=== PATIENT | female | born 1950 | race Caucasian/White ===

== ENCOUNTER 2016-08-25 09:00 | Day surgery (SDC) | payer MEDICARE, BC ==
[2016-08-25] MEDS ORDERED: Propofol 200 MG/20 ML SDV ONE (09:21)
[2016-08-25] MEDS ORDERED: Midazolam 1 MG/ML 2 ML SDV ONE (09:21)
[2016-08-25] MEDS ORDERED: fentaNYL 100 MCG/2 ML SDV ONE (09:21)
[2016-08-25] MEDS ORDERED: Dextrose 5%-Lactated Ringers 1,000 ML IV SCH (09:45)
[2016-08-25] MEDS ORDERED: Glycopyrrolate 0.2 MG/ML 2 ML SYRINGE IVPUSH ONE (10:15)
[2016-08-25 12:41] VITALS: BP 138/80
--- NOTE | 2016-09-02 08:09 | OR ---
DATE OF PROCEDURE: 08/25/2016 PREOPERATIVE DIAGNOSIS: History of gastric lymphoma. POSTOPERATIVE DIAGNOSIS: History of gastric lymphoma associated with, 1. Persistent area of ulceration of the gastric fundus. 2. Mild antral gastritis. OPERATIVE PROCEDURE: Esophagogastroduodenoscopy with, 1. Biopsies of area of ulceration of the gastric fundus. 2. Biopsies of antrum for CLOtest. ANESTHESIA: IV sedation. 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 She is status post previous radiation treatment and plan is to proceed with upper GI endoscopy with biopsies as indicated to try to assess the presence of her current disease. The potential risks of the procedure including bleeding and perforation were discussed and the patient wishes to proceed. DETAILS OF PROCEDURE: The patient was taken to the operating room and placed in a left lateral decubitus position. IV sedation was administered, after which the upper GI endoscope was passed orally through the length of the esophagus and into the stomach with retroflexion view of the fundus and thereafter through the pyloric channel and into the proximal duodenum. Findings included normal hypopharynx, larynx, upper esophageal sphincter, and esophageal body. At the EG junction, there is a small hiatal hernia present, otherwise unremarkable. As one passed into the stomach, retroflexion revealed a large heaped up area in the fundus with a central ulceration photo documentation of this was obtained. There was no blood or bleeding seen. In the remainder of the stomach, there was some diffuse mild redness particularly in the area of the antrum, but without erosions or ulcers. Pyloric channel and duodenum junction of the third and fourth portions were unremarkable. At this point, biopsies obtained from the antrum were sent for CLOtest for H. pylori and following this, multiple biopsies in the area of ulceration were obtained. Two approaches were used in terms of this biopsy, one is going through the area of the ulceration and would intentionally core down through a single area to get deeper level biopsies given the lymphoma being submucosal disease. Similarly, in the area of the heaped up tissue which was quite soft, multiple biopsies were obtained, again, in several cases repeat biopsies over the previous biopsy site to get deeper levels were also obtained. Minimal bleeding from the biopsy sites was seen and the procedure was then concluded. The patient will be following up with Dr. Camarillo in [facility] and further management will be based on today's endoscopic biopsy results. Efren Reyes MD /[id number]
== END 2016-08-25 13:15 | disposition home or self-care (01) ==
LOC: JP.SDS 09:00
PROVIDERS: ATTEND Surgery
PROC: 0DB78ZZ Excision of Stomach, Pylorus, Via Natural or Artificial Opening Endoscopic (ICD-10-PCS; principal; 2016-08-25)
DX: Z87.19 Personal history of other diseases of the digestive system (principal); K29.50 Unspecified chronic gastritis without bleeding
CPT/HCPCS: 43239; 87081; 88305; 88342; 88365; J2250; J2704; J7042; J3010

== ENCOUNTER 2022-09-19 15:27 | Emergency (ER) | payer MEDICARE ==
[2022-09-19 16:59] LABS: ESTIMATED GFR 53 mL/min (>60); TROPONIN I HIGH SENSITIVITY 6.5 pg/mL (<=60.3)
[2022-09-19 18:06] VITALS: BP 135/74; PULSE 68
== END 2022-09-19 18:05 | disposition home or self-care (01) ==
LOC: JP.ED 15:27
DX: I10 Essential (primary) hypertension (principal); F43.9 Reaction to severe stress, unspecified; Z88.1 Allergy status to other antibiotic agents; Z91.040 Latex allergy status; Z88.8 Allergy status to other drugs, medicaments and biological substances; Z91.09 Other allergy status, other than to drugs and biological substances
CPT/HCPCS: 36415; 80053; 84484; 85025; 93005; 93010; 99283

== ENCOUNTER 2022-11-17 20:04 | Emergency (ER) | payer MEDICARE ==
[2022-11-17] MEDS ORDERED: Sodium Chloride 0.9% 1,000 ML IV SCH (21:30)
[2022-11-17 21:38] LABS: BASOPHILS ABSOLUTE AUTO 0.04 K/uL (0.00-0.10); BASOPHILS PERCENT AUTO 0.6 % (0.1-1.3); EOSINOPHILS ABSOLUTE AUTO 0.36 K/uL (0.00-0.40); EOSINOPHILS PERCENT AUTO 5.6 % (0.0-5.4); HEMATOCRIT 36.4 % (34.3-46.0); HEMOGLOBIN 12.1 g/dL (11.2-15.5); IMMATURE GRAN PERCENT AUTO 0.2 % (0.0-0.7); LYMPHOCYTES ABSOLUTE AUTO 1.17 K/uL (0.8-3.3); LYMPHOCYTES PERCENT AUTO 18.3 % (11.4-47.7); MEAN CORPUSCULAR HEMOGLOBIN 30.9 pg (31.6-35.5); MEAN CORPUSCULAR HGB CONC 33.2 g/dL (31.6-35.5); MEAN CORPUSCULAR VOLUME 93.1 fL (81.4-99.0); MONOCYTES ABSOLUTE AUTO 0.76 K/uL (0.20-0.90); MONOCYTES PERCENT AUTO 11.9 % (3.3-12.6); NEUTROPHILS ABSOLUTE AUTO 4.07 K/uL (1.0-7.6); NEUTROPHILS PERCENT AUTO 63.4 % (40.0-78.1); PLATELET COUNT,PLT 256 K/uL (130-375); RED BLOOD CELL COUNT 3.91 M/uL (3.77-5.24); WHITE BLOOD CELL COUNT,WBC 6.4 K/uL (3.2-11.0)
[2022-11-17 21:44] LABS: IMMATURE GRAN ABSOLUTE AUTO 0.01 K/uL (0.00-0.23)
[2022-11-17 21:56] LABS: APPEARANCE,URINE CLEAR (CLEAR); BILIRUBIN,URINE NEGATIVE (NEGATIVE); COLOR,URINE YELLOW (YELLOW); GLUCOSE,URINE NEGATIVE (NEGATIVE); KETONES,URINE NEGATIVE (NEGATIVE); LEUKOCYTE ESTERASE,URINE NEGATIVE (NEGATIVE); NITRITE,URINE NEGATIVE (NEGATIVE); OCCULT BLOOD,URINE NEGATIVE (NEGATIVE); PROTEIN,URINE NEGATIVE (NEGATIVE); UROBILINOGEN,URINE 0.2 EU/dL (0.2-1.0)
[2022-11-17 22:00] LABS: A/G RATIO 0.8 (1.2-2.2); ALANINE AMINOTRANSFERASE,ALT 22 U/L (12-78); ALBUMIN 3.2 g/dL (3.4-5.0); ALKALINE PHOSPHATASE 116 U/L (46-116); ASPARTATE AMNIOTRANSFERASE,AST 18 U/L (15-37); BILIRUBIN TOTAL 0.2 mg/dL (0.2-1.0); BLOOD UREA NITROGEN,BUN 23 mg/dL (7-18); CALCIUM 8.8 mg/dL (8.5-10.1); CARBON DIOXIDE,CO2 27 mmol/L (21-32); CHLORIDE,CL 102 mmol/L (100-108); EST CRCL DRUG DOSING (CG) 44.41 mL/min; ESTIMATED GFR 59 mL/min (>60); GLUCOSE RANDOM 124 mg/dL (74-106); MAGNESIUM 2.5 mg/dL (1.8-2.4); POTASSIUM,K 4.4 mmol/L (3.6-5.2); SODIUM,NA 136 mmol/L (140-148)
[2022-11-17 22:01] LABS: ANION GAP 11.4 mmol/L (5.0-14.0)
[2022-11-17 22:03] LABS: AMORPHOUS SEDIMENT,URINE NOT SEEN; BACTERIA,URINE RARE; EPITHELIAL CELLS,URINE FEW; MUCUS,URINE RARE; RBC,URINE 0-5 (0-5); WBC,URINE 0-5 (0-5)
[2022-11-17 23:06] VITALS: BP 135/70; PULSE 58
== END 2022-11-17 23:49 | disposition home or self-care (01) ==
LOC: JP.ED 20:04
DX: E86.0 Dehydration (principal); Z91.040 Latex allergy status; Z88.1 Allergy status to other antibiotic agents; Z88.8 Allergy status to other drugs, medicaments and biological substances; Z91.041 Radiographic dye allergy status; Z87.891 Personal history of nicotine dependence
CPT/HCPCS: 36415; 70450; 80053; 81001; 83735; 85025; 93005; 99285; J7030

== ENCOUNTER 2024-07-17 02:12 | Emergency (ER) | payer MEDICARE ==
[2024-07-17 03:04] LABS: BASOPHILS ABSOLUTE AUTO 0.04 K/uL (0.00-0.10); BASOPHILS PERCENT AUTO 0.5 % (0.1-1.3); EOSINOPHILS ABSOLUTE AUTO 0.15 K/uL (0.00-0.40); EOSINOPHILS PERCENT AUTO 1.9 % (0.0-5.4); HEMATOCRIT 28.9 % (34.3-46.0); HEMOGLOBIN 9.3 g/dL (11.2-15.5); IMMATURE GRAN ABSOLUTE AUTO 0.04 K/uL (0.00-0.23); IMMATURE GRAN PERCENT AUTO 0.5 % (0.0-0.7); LYMPHOCYTES ABSOLUTE AUTO 0.85 K/uL (0.8-3.3); LYMPHOCYTES PERCENT AUTO 10.8 % (11.4-47.7); MEAN CORPUSCULAR HEMOGLOBIN 31.3 pg (31.6-35.5); MEAN CORPUSCULAR HGB CONC 32.2 g/dL (31.6-35.5); MEAN CORPUSCULAR VOLUME 97.3 fL (81.4-99.0); MONOCYTES PERCENT AUTO 5.1 % (3.3-12.6); NEUTROPHILS ABSOLUTE AUTO 6.39 K/uL (1.0-7.6); NEUTROPHILS PERCENT AUTO 81.2 % (40.0-78.1); PLATELET COUNT,PLT 196 K/uL (130-375); RED BLOOD CELL COUNT 2.97 M/uL (3.77-5.24); WHITE BLOOD CELL COUNT,WBC 7.9 K/uL (3.2-11.0)
[2024-07-17] MEDS: Sodium Chloride 0.9% 1,000 ML IV ONE ×2 (03:07→05:55)
[2024-07-17 03:25] LABS: ALANINE AMINOTRANSFERASE,ALT 16 U/L (12-78); ALBUMIN 3.1 g/dL (3.4-5.0); ALKALINE PHOSPHATASE 90 U/L (46-116); ANION GAP 6.7 mmol/L (5.0-14.0); ASPARTATE AMNIOTRANSFERASE,AST 15 U/L (15-37); BILIRUBIN TOTAL 0.4 mg/dL (0.2-1.0); BLOOD UREA NITROGEN,BUN 52 mg/dL (7-18); CALCIUM 8.7 mg/dL (8.5-10.1); CARBON DIOXIDE,CO2 28 mmol/L (21-32); CHLORIDE,CL 105 mmol/L (100-108); CREATININE 1.1 mg/dL (0.6-1.0); EST CRCL DRUG DOSING (CG) 39.76 mL/min; ESTIMATED GFR 52 mL/min (>60); GLUCOSE RANDOM 157 mg/dL (74-106); POTASSIUM,K 4.7 mmol/L (3.6-5.2); PROTEIN TOTAL,TP 6.2 g/dL (6.4-8.2); SODIUM,NA 140 mmol/L (140-148); TROPONIN I HIGH SENSITIVITY 5.6 pg/mL (<=60.3)
[2024-07-17] MEDS: Prochlorperazine 10 MG/2 ML SDV IVPUSH ONE (03:25)
[2024-07-17 05:28] VITALS: BP 120/65; PULSE 74
== END 2024-07-17 07:22 | disposition home or self-care (01) ==
LOC: JP.ED 02:12
DX: K52.9 Noninfective gastroenteritis and colitis, unspecified (principal); E78.00 Pure hypercholesterolemia, unspecified; Z90.710 Acquired absence of both cervix and uterus; Z88.8 Allergy status to other drugs, medicaments and biological substances; Z91.040 Latex allergy status; Z91.048 Other nonmedicinal substance allergy status; Z79.82 Long term (current) use of aspirin; Z79.899 Other long term (current) drug therapy
CPT/HCPCS: 36415; 80053; 83605; 83690; 84484; 85025; 93005; 93010; 96361; 96374; 99283; 99285; J0780

== ENCOUNTER 2024-11-05 18:20 | Emergency (ER) | payer MEDICARE ==
[2024-11-05 18:28] VITALS: BP 177/90; PULSE 77
== END 2024-11-05 18:43 | disposition left against medical advice (07) ==
LOC: JP.ED 18:20
DX: Z53.21 Procedure and treatment not carried out due to patient leaving prior to being seen by health care provider (principal)